=== PATIENT | female | born 1970 | race Caucasian/White ===

== ENCOUNTER 2022-07-02 02:28 | Emergency (ER) | payer MEDICAID, SELFPAY ==
[2022-07-02 02:37] VITALS: BP 119/68; PULSE 101; RESP 16; TEMP 36.6; O2SAT 99; BMI 23.5
[2022-07-02 02:42] VITALS: BP 110/67; PULSE 89; RESP 16; O2SAT 99
--- NOTE | 2022-07-02 02:47 | ED_ITS ---
HPI - General Adult General: Chief complaint: General Medical Stated complaint: Deydrated\Ear Pain\Cant's Sleep Time Seen by Provider: 07/02/22 02:34 Source: patient Mode of arrival: ambulatory Limitations: no limitations History of Present Illness: 51-year-old female who states that over the last few days she been having some congestion along with ear pain slight cough along with some dysuria states she also feels like she may be dehydrated she had no vomiting no diarrhea states she has felt anxious she states she just moved here from [place] and was unable to fill her Xanax she has been out of it a week. States she had difficulty sleeping. Associated symptoms: Deny chest pain, dyspnea, headache(s), nausea, rash or vomiting Review of Systems Const: Reports: body aches; Denies: fever(s), chills or change in appetite Eyes: Denies: eye discomfort ENMT: Reports: ear or mastoid pain; Denies: throat pain or dental pain Card: Denies: chest pain Resp: Denies: dyspnea GI: Denies: abdominal pain, nausea, vomiting or diarrhea : Reports: dysuria Musc: Denies: neck pain or back pain Skin/Breast: Denies: rash Neuro: Denies: headache(s) Psych: Reports: anxiety PFSH ED PFSH: Medical History (Updated 07/02/22 @ 03:33 by Michaela Posadas MD) Anxiety Social History (Updated 07/02/22 @ 02:49 by Michaela Posadas MD) Substance/Drug Use: unknown Physical Exam 2 Const: COMMON NORMALS: no acute distress, patient oriented x3 and healthy appearing HENMT: COMMON NORMALS: normocephalic, atraumatic and TM's normal bilaterally HEAD & SCALP: normocephalic and atraumatic TYMPANIC MEMBRANE: TM's normal bilaterally THROAT: posterior oropharynx normal Eye: COMMON NORMALS: conjunctivae normal CONJUNCTIVA: Yes conjunctivae normal Neck/C-Spine: COMMON NORMALS: full ROM and supple Chest: COMMONS NORMALS: normal inspection of the chest and normal palpation of entire chest wall Resp: COMMON NORMALS: normal respiratory effort, No retractions, No use of accessory muscles and clear to auscultation bilaterally AUSCULTATION: clear to auscultation bilaterally Cardio: COMMON NORMALS: regular rate, regular rhythm and No murmurs present (Cardio) RATE: regular rate RHYTHM: regular rhythm GI: COMMON NORMALS: Normal to inspection, nondistended, normoactive bowel sounds present, Soft to palpation, non-tender and no masses PALPATION: Yes Soft to palpation Extremity: COMMON NORMALS: normal to inspection and full ROM Neuro: COMMON NORMALS: patient oriented x3, moves all extremities and no focal motor deficits Psych: COMMON NORMALS: mental status grossly normal, Normal thought process present and cooperative THOUGHT PROCESS: Normal thought process present Skin: COMMON NORMALS: no rashes or lesions noted and no wounds GENERAL SKIN EXAM: no rashes or lesions noted Course Vital Signs: Vital signs: Vital Signs Temperature 97.8 F 07/02/22 02:37 Pulse Rate 96 07/02/22 03:39 Respiratory Rate 14 07/02/22 03:39 Blood Pressure 116/63 07/02/22 03:39 Pulse Oximetry 98 07/02/22 03:39 Oxygen Delivery Me thod Room Air 07/02/22 03:39 MDM - General Adult Medical Decision Making Patient presents here with cough congestion and some sinus pain possibly a sinusitis we will place her on a Z-Renato she is to continue take decongestants she does have some hyperglycemia here that is improved she is a diabetic no signs of UTI she is stable for discharge she is to follow-up with PCP and return if wo rsening. Medical Records I reviewed the patient's medical records. Lab Data I reviewed the patient's lab results. 07/02/22 02:47 07/02/22 02:47 Laboratory Results WBC 8.7 10^3/uL (4.0-10.0) 07/02/22 02:47 RBC 5.41 10^6/uL (4.1-5.3) H 07/02/22 02:47 Hgb 14.7 g/dL (11.5-15.3) 07/02/22 02:47 Hct 45.7 % (37.0-47.0) 07/02/22 02:47 MCV 84.5 fl (81-99) 07/02/22 02:47 MCH 27.2 pg (28.0-34.0) L 07/02/22 02:47 MCHC 32.2 g/dL (30.0-36.0) 07/02/22 02:47 RDW 15.9 % (12.1-15.1) H 07/02/22 02:47 Plt Count 213 10^3/cmm (130-400) 07/02/22 02:47 MPV 9.2 fL (7.4-10.4) 07/02/22 02:47 Neut % (Auto) 69.1 % 07/02/22 02:47 Lymph % (Auto) 19.7 % 07/02/22 02:47 [place] % (Auto) 9.6 % 07/02/22 02:47 Eos % (Auto) 0.3 % 07/02/22 02:47 Baso % (Auto) 0.8 % 07/02/22 02:47 Neut # (Auto) 5.98 10^3/uL (1.8-7.7) 07/02/22 02:47 Lymph # (Auto) 1.7 10^3/uL (0.8-4.8) 07/02/22 02:47 [place] # (Auto) 0.8 10^3/uL (0.2-0.9) 07/02/22 02:47 Eos # (Auto) 0.0 10^3/uL (0.0-0.8) 07/02/22 02:47 Baso # (Auto) 0.1 10^3/uL (0.0-0.1) 07/02/22 02:47 Nucleated RBC % (auto) 0 % 07/02/22 02:47 Nucleated RBCs # 0.0 /100WBC 07/02/22 02:47 Sodium 131 mmol/L (136-145) L 07/02/22 02:47 Potassium 4.3 mmol/L (3.5-5.1) 07/02/22 02:47 Chloride 89 mmol/L (98-107) L 07/02/22 02:47 Carbon Dioxide 26 mmol/L (22-29) 07/02/22 02:47 Anion Gap 20.3 (5-19) H 07/02/22 02:47 BUN 9 mg/dL (6-20) 07/02/22 02:47 Creatinine 0.6 mg/dL (0.5-0.9) 07/02/22 02:47 GFR Calculation 105.8 mL/min (90-130) 07/02/22 02:47 Glucose 420 mg/dL (65-115) H 07/02/22 02:47 POC Glucose 363 mg/dL (70-110) H 07/02/22 03:35 Calculated Osmolality 289 mOsm/kg (285-295) 07/02/22 02:47 Calcium 9.8 mg/dL (8.5-10.5) 07/02/22 02:47 Total Bilirubin 1.2 mg/dL (0.15-1.2) 07/02/22 02:47 AST 119 U/L (0-32) H 07/02/22 02:47 ALT 56 U/L (0-33) H 07/02/22 02:47 Alkaline Phosphatase 137 U/L (35-105) H 07/02/22 02:47 Total Protein 8.2 g/dL (6.6-8.7) 07/02/22 02:47 Albumin 4.6 g/dL (3.5-5.2) 07/02/22 02:47 Globulin 3.6 g/dL (1.3-4.6) 07/02/22 02:47 Urine Color Yellow (Yellow) 07/02/22 02:47 Urine Appearance Clear (CLEAR) 07/02/22 02:47 Urine pH 6 (5-7) 07/02/22 02:47 Ur Specific [place] 1.010 (1.005-1.030) 07/02/22 02:47 Urine Protein Neg (Negative) 07/02/22 02:47 Urine Glucose (UA) 4+ (Normal) H 07/02/22 02:47 Urine Ketones 1+ (Negative) H 07/02/22 02:47 Urine Blood Neg (Negative) 07/02/22 02:47 Urine Nitrate Negative (Negative) 07/02/22 02:47 Urine Bilirubin Neg (Negative) 07/02/22 02:47 Urine Urobilinogen 1 mg/dL (Negative) H 07/02/22 02:47 Ur Leukocyte Esterase Negative (Negative) 07/02/22 02:47 SARS-CoV-2 Ag (Rapid) negative (Negative) 07/02/22 03:00 Imaging Data CXR: I personally reviewed and interpreted this imaging study as follows: My impression: no acute abnormality Discharge Plan Discharge Patient Disposition: Home Clinical Impression: Hyperglycemia, Anxiety, Upper respiratory infection Prescriptions: New Zithromax Z-Renato 250 mg tablet See Rx Instructions .ROUTE .COMPLEX Qty: 6 0RF Rx Instructions: take 500 mg today (day 1), then 250 mg for 4 days (days 2-5) Discharge Orders: Discharge ED (Routine); Ordered 07/02/22 Ordered By: Michaela Posadas Discharge Diet: Advance as tolerated Discharge Activity: Resume usual activity Patient Instructions: Upper Respiratory Infection (ED), Diabetic Hyperglycemia (ED) Coding Level of Care Code ED Electronic Scale Tester for Adelaide Salgado
[2022-07-02] MEDS: sodium chloride 0.9% 1,000 ML 999 ML IV (02:52)
[2022-07-02] MEDS: ALPRAZolam 0.5 mg Tablet 2 MG PO (02:53)
[2022-07-02 02:54] LABS: Basophils # 0.1 10^3/uL (0.0-0.1); Basophils % 0.8 %; Eosinophils % 0.3 %; Hematocrit 45.7 % (37.0-47.0); Hemoglobin 14.7 g/dL (11.5-15.3); Lymphocytes # 1.7 10^3/uL (0.8-4.8); Lymphocytes % 19.7 %; Mean Corpuscular HGB Conc 32.2 g/dL (30.0-36.0); Mean Corpuscular Hemoglobin 27.2 pg (28.0-34.0); Mean Corpuscular Volume 84.5 fl (81-99); Mean Platelet Volume 9.2 fL (7.4-10.4); Monocytes # 0.8 10^3/uL (0.2-0.9); Monocytes % 9.6 %; Neutrophils # 5.98 10^3/uL (1.8-7.7); Neutrophils % 69.1 %; Nucleated Red Blood Cells % 0 %; Platelet Count 213 10^3/cmm (130-400); Red Blood Count 5.41 10^6/uL (4.1-5.3); Red Cell Distribution Width 15.9 % (12.1-15.1); White Blood Count 8.7 10^3/uL (4.0-10.0)
[2022-07-02 03:04] LABS: Glucose Point of Care 360 mg/dL (70-110)
[2022-07-02 03:05] LABS: Add Urine Microscopic? NO; Charge for UA Resulting for Rev
[2022-07-02 03:09] LABS: Bilirubin Urine Neg (Negative); Blood Urine Neg (Negative); Glucose Urine UA 4+ (Normal); Ketones Urine 1+ (Negative); Leukocyte Esterase Urine Negative (Negative); Nitrate Urine Negative (Negative); Protein Urine Neg (Negative); Urine Appearance Clear (CLEAR); Urine Color Yellow (Yellow); Urobilinogen Urine 1 mg/dL (Negative); pH Urine 6 (5-7)
[2022-07-02 03:13] LABS: Alanine Aminotransferase 56 U/L (0-33); Albumin Level 4.6 g/dL (3.5-5.2); Alkaline Phosphatase 137 U/L (35-105); Anion Gap 20.3 (5-19); Aspartate Amino Transferase 119 U/L (0-32); Blood Urea Nitrogen 9 mg/dL (6-20); Calcium 9.8 mg/dL (8.5-10.5); Carbon Dioxide 26 mmol/L (22-29); Chloride 89 mmol/L (98-107); Globulin 3.6 g/dL (1.3-4.6); Glomerular Filtration Rate 105.8 mL/min (90-130); Glucose 420 mg/dL (65-115); Osmolality Calculated 289 mOsm/kg (285-295); Potassium 4.3 mmol/L (3.5-5.1); Sodium 131 mmol/L (136-145); Total Bilirubin 1.2 mg/dL (0.15-1.2); Total Protein 8.2 g/dL (6.6-8.7)
[2022-07-02] MEDS: insulin regular-human 100 units/1 mL 5 UNIT IVP (03:18)
[2022-07-02 03:22] LABS: SARS Covid-2 Antigen negative (Negative)
[2022-07-02 03:39] VITALS: BP 116/63; PULSE 96; RESP 14; O2SAT 98
[2022-07-02 03:39] LABS: Glucose Point of Care 363 mg/dL (70-110)
[2022-07-02] MEDS: azithromycin 250 mg Tablet 500 MG PO (03:49)
[2022-07-02 03:53] VITALS: BP 110/56; PULSE 93; RESP 14; O2SAT 97
--- NOTE | 2022-07-10 07:44 | DCPLANNER ---
TCM called patient due to no primary care physician - no answer at this time.
== END 2022-07-02 03:55 | disposition home or self-care (01) ==
PROVIDERS: Emergency Provider Emergency Medicine
DX: J06.9 Acute upper respiratory infection, unspecified (principal); F41.9 Anxiety disorder, unspecified; R73.9 Hyperglycemia, unspecified; Z20.822 Contact with and (suspected) exposure to COVID-19
CPT/HCPCS: 36416; 80053; 81003; 82962; 85025; 87426; 96361; 96374; 99284; J1815; J7030; Q0144

== ENCOUNTER 2022-08-03 09:06 | Emergency (ER) | payer MEDICAID, SELFPAY ==
[2022-08-03] VITALS (8 sets, daily range): BP systolic 116–167; BP diastolic 65–108; PULSE 82–113; RESP 16–18; TEMP 36.6; O2SAT 96–98
--- NOTE | 2022-08-03 11:12 | US_ITS ---
WS: [id number] RIGHT UPPER QUADRANT ULTRASOUND HISTORY: RUQ abdominal pain, n/v COMPARISON: None available. Liver: 20.1 cm in length. Moderate hepatomegaly and hepatic steatosis. No mass or bile duct dilatatio n. Portal Vein: Normal hepatopetal flow with monophasic waveform. Gallbladder: Normally distended gallbladder with no stones or wall thickening. CBD: 0.2 cm Pancreas: Normal size and echogenicity. Right kidney: 13.0 cm in length. Normal size and echogenicity. No hydronephrosis or mass. Aorta and IVC: Limited. No ascites. US/US gall bladder [id number] IMPRESSION: 1. Normal gallbladder. No cholelithiasis identified. 2. Moderate hepatomegaly and hepatic steatosis.
--- NOTE | 2022-08-03 11:15 | W.ED.GENADLT ---
Documented by User: LIZ Tavera 08/03/22 16:56 HPI - General Adult General: Chief complaint: General Medical Stated complaint: high blood sugar Time Seen by Provider: 08/03/22 10:59 History of Present Illness: Patient is a 51-year-old female who comes to the ED with elevated blood sugars, nausea/vomiting and abdominal pain. Patient says her symptoms started approximately a week ago. She states that she just moved down to this area about 2 months ago and does not have a primary care physician. Past surgical history of gastric sleeve and appendectomy. She has type 2 diabetes, depression and anxiety and has not been on any of her meds for approximately a month. Patient states she was on metformin and glipizide. Denies any SI. Approximately a week ago she started having abdominal pain in the right upper quadrant of the abdomen. She rates her pain currently a 7 out of 10. She says pain worsens whenever she tries to eat anything. She endorses having nausea and vomiting all throughout the past week as well and states that she took her blood sugar today and it was 545. Denies any fevers but endorses chills and increased urine frequency. She has to urinate every 2 hours and has had trouble sleeping because she is consciously getting up to go to the bathroom. Associated symptoms: Reports nausea and vomiting; Deny chest pain, dyspnea, headache(s), rash or palpitations Review of Systems Const: Denies: fever(s), chills or fatigue Eyes: Denies: change in vision or eye discomfort ENMT: Denies: throat pain, odynophagia, nasal discharge or nasal congestion Card: Denies: chest pain, palpitations, edema, swelling of feet/ankles, dyspnea on exertion or orthopnea Resp: Denies: dyspnea, productive cough or non-productive cough GI: Reports: abdominal pain, nausea and vomiting; Denies: diarrhea, constipation or hematochezia : Denies: flank pain, dysuria or hematuria Musc: Denies: neck pain, back pain or extremity swelling Skin/Breast: Denies: rash or new lesions Neuro: Denies: headache(s), numbness in extremities or weakness in extremities Endo: Reports: polyuria [facility] PFSH: Medical History (Updated 08/03/22 @ 16:28 by ILZ Tavera) Anxiety Depression Diabetes type 2, uncontrolled Surgical History (Updated 08/03/22 @ 11:24 by LIZ Tavera) H/O gastric sleeve History of appendectomy Social History (Updated 07/02/22 @ 02:49 by Michaela Posadas MD) Substance/Drug Use: unknown Physical Exam Const: COMMON NORMALS: patient oriented x3 and alert GENERAL APPEARANCE: cooperative HENMT: COMMON NORMALS: normocephalic HEAD & SCALP: normocephalic MOUTH: Normal oral and palatal mucosa present THROAT: posterior oropharynx normal and uvula midline Neck/C-Spine: COMMON NORMALS: supple GENERAL: Yes normal visual inspection Resp: COMMON NORMALS: normal respiratory effort, No retractions, No use of accessory muscles and clear to auscultation bilaterally AUSCULTATION: clear to auscultation bilaterally Cardio: COMMON NORMALS: regular rate, regular rhythm, S1 normal heart sound present, S2 normal heart sound present, No gallops present (Cardio), No clicks present (Cardio), No murmurs present (Cardio) and Peripheral pulses 2+ throughout RATE: regular rate RHYTHM: regular rhythm HEART SOUNDS: S1 normal heart sound present and S2 normal heart sound present PERIPHERAL PULSES: Peripheral pulses 2+ throughout GI: COMMON NORMALS: Normal to inspection, nondistended, normoactive bowel sounds present, Soft to palpation and no masses PALPATION: Yes Soft to palpation and Yes Tenderness to palpation present (GI) Details: RUQ : COMMON NORMALS: Yes no CVA tenderness BLADDER/KIDNEY EXAM: Yes no CVA tenderness Back/Pelvis: COMMON NORMALS: no CVA tenderness Extremity: COMMON NORMALS: normal to inspection Neuro: COMMON NORMALS: patient oriented x3 SENSORIUM/ORIENTATION: Yes alert GAIT: Yes Normal gait present Skin: GENERAL SKIN EXAM: dry skin Course Vital Signs: Vital signs: Vital Signs Temperature 97.9 F 08/03/22 09:35 Pulse Rate 106 H 08/03/22 16:46 Respiratory Rate 16 08/03/22 16:46 Blood Pressure 116/65 08/03/22 16:46 Pulse Oximetry 96 08/03/22 16:46 Oxygen Delivery Me thod Room Air 08/03/22 09:35 [facility] - General Adult Medical Decision Making Patient is a 51-year-old female who comes to the ED with elevated blood sugars, nausea/vomiting and abdominal pain. Patient says her symptoms started approximately a week ago. She states that she just moved down to this area about 2 months ago and does not have a primary care physician. Past surgical history of gastric sleeve and appendectomy. She has type 2 diabetes, depression and anxiety and has not been on any of her meds for approximately a month. Patient states she was on metformin and glipizide. Denies any SI. Approximately a week ago she started having abdominal pain in the right upper quadrant of the abdomen. She rates her pain currently a 7 out of 10. She says pain worsens whenever she tries to eat anything. She endorses having nausea and vomiting all throughout the past week as well and states that she took her blood sugar today and it was 545. Denies any fevers but endorses chills and increased urine frequency. She has to urinate every 2 hours and has had trouble sleeping because she is consciously getting up to go to the bathroom. Vitals are stable. Patient has right upper quadrant abdominal tenderness but rest of exam is benign. She appears nontoxic in no acute distress. Patient has a blood glucose of 374, AST 384 and ALT 218. T. bili is normal at 0.6. the rest of her CBC and CMP are unremarkable. Lipase 409. UA shows yeast infection. Ultrasound gallbladder showed no acute findings but noted some moderate hepatomegaly. CT of abdomen pelvis showed no findings of acute pancreatitis and no other acute findings noted. Hepatitis panel was all nonreactive. Patient was given 2 L of IV fluids, insulin, anxiety meds, nausea and pain meds here in the ED. her symptoms were improved and she was able to tolerate p.o. fluids here in the ED. I discussed patient case with Dr. Beach and he agreed patient is stable for discharge home and he recommended putting an order with case management for patient to have referral to general surgery. I placed an order with case management for patient be referred to a PCP locally and to general surgery for follow-up on biliary colic. Patient was diagnosed with biliary colic, hyper glycemia due to type 2 diabetes, yeast infection and anxiety. She was sent home with a prescription for a pain med, nausea med, fluconazole and Vistaril. Strict return to ED precautions given. Patient understood and agreed with plan. Lab Data I reviewed the patient's lab results. 08/03/22 11:25 08/03/22 11:25 Radiology Impressions Gallbladder Ultrasound 06/12/23 11:12 IMPRESSION: 1. Normal gallbladder. No cholelithiasis identified. 2. Moderate hepatomegaly and hepatic steatosis. Abdomen/Pelvis CT 08/03/22 12:18 IMPRESSION: 1. Moderate hepatomegaly and hepatic steatosis. 2. No bile duct dilatation. 3. No CT evidence for acute pancreatitis. 4. Mildly hydropic gallbladder with no adjacent inflammation. 5. Prior gastric sleeve and appendectomy. 6. No free air or free fluid. Laboratory Results WBC 6.6 10^3/uL (4.0-10.0) 08/03/22 11:25 RBC 5.23 10^6/uL (4.1-5.3) 08/03/22 11:25 Hgb 15.1 g/dL (11.5-15.3) 08/03/22 11:25 Hct 47.0 % (37.0-47.0) 08/03/22 11:25 MCV 89.9 fl (81-99) 08/03/22 11:25 MCH 28.9 pg (28.0-34.0) 08/03/22 11:25 MCHC 32.1 g/dL (30.0-36.0) 08/03/22 11:25 RDW 15.9 % (12.1-15.1) H 08/03/22 11:25 Plt Count 202 10^3/cmm (130-400) 08/03/22 11:25 MPV 9.5 fL (7.4-10.4) 08/03/22 11:25 Neut % (Auto) 65.4 % 08/03/22 11:25 Lymph % (Auto) 20.3 % 08/03/22 11:25 [place] % (Auto) 12.0 % 08/03/22 11:25 Eos % (Auto) 0.3 % 08/03/22 11:25 Baso % (Auto) 1.4 % 08/03/22 11:25 Neut # (Auto) 4.33 10^3/uL (1.8-7.7) 08/03/22 11:25 Lymph # (Auto) 1.3 10^3/uL (0.8-4.8) 08/03/22 11:25 [place] # (Auto) 0.8 10^3/uL (0.2-0.9) 08/03/22 11:25 Eos # (Auto) 0.0 10^3/uL (0.0-0.8) 08/03/22 11:25 Baso # (Auto) 0.1 10^3/uL (0.0-0.1) 08/03/22 11:25 Nucleated RBC % (auto) 0 % 08/03/22 11:25 Nucleated RBCs # 0.0 /100WBC 08/03/22 11:25 Sodium 133 mmol/L (136-145) L 08/03/22 11:25 Potassium 4.5 mmol/L (3.5-5.1) 08/03/22 11:25 Chloride 86 mmol/L (98-107) L 08/03/22 11:25 Carbon Dioxide 25 mmol/L (22-29) 08/03/22 11:25 Anion Gap 26.5 (5-19) H 08/03/22 11:25 BUN 9 mg/dL (6-20) 08/03/22 11:25 Creatinine 0.5 mg/dL (0.5-0.9) 08/03/22 11:25 GFR Calculation 130.6 mL/min (90-130) H 08/03/22 11:25 Glucose 374 mg/dL (65-115) H 08/03/22 11:25 Calculated Osmolality 290 mOsm/kg (285-295) 08/03/22 11:25 Calcium 10.3 mg/dL (8.5-10.5) 08/03/22 11:25 Total Bilirubin 0.6 mg/dL (0.15-1.2) 08/03/22 11:25 AST 384 U/L (0-32) H 08/03/22 11:25 ALT 218 U/L (0-33) H 08/03/22 11:25 Alkaline Phosphatase 200 U/L (35-105) H 08/03/22 11:25 Total Protein 8.3 g/dL (6.6-8.7) 08/03/22 11:25 Albumin 4.3 g/dL (3.5-5.2) 08/03/22 11:25 Globulin 4.0 g/dL (1.3-4.6) 08/03/22 11:25 Lipase 409 U/L (13-60) H 08/03/22 11:25 Urine Color Yellow (Yellow) 08/03/22 11:25 Urine Appearance Clear (CLEAR) 08/03/22 11:25 Urine pH 5 (5-7) 08/03/22 11:25 Ur Specific [place] 1.010 (1.005-1.030) 08/03/22 11:25 Urine Protein Neg (Negative) 08/03/22 11:25 Urine Glucose (UA) 4+ (Normal) H 08/03/22 11:25 Urine Ketones 2+ (Negative) H 08/03/22 11:25 Urine Blood Neg (Negative) 08/03/22 11:25 Urine Nitrate Negative (Negative) 08/03/22 11:25 Urine Bilirubin Neg (Negative) 08/03/22 11:25 Urine Urobilinogen Norm mg/dL (Negative) 08/03/22 11:25 Ur Leukocyte Esterase Trace (Negative) H 08/03/22 11:25 Urine RBC 0-4 /hpf (0-2) H 08/03/22 11:25 Urine WBC 40-55 /hpf (0-5) H 08/03/22 11:25 Ur Squamous Epith Cells 0-4 /hpf (0-5) H 08/03/22 11:25 Amorphous Sediment Not Reportable 08/03/22 11:25 Urine Bacteria Trace /hpf (NONE) 08/03/22 11:25 Urine Yeast 1+ /hpf H 08/03/22 11:25 Serum Ketones Negative (Negative) 08/03/22 11:25 Hepatitis A IgM Ab Non-reactive (Nonreactive) 08/03/22 11:25 Hep Bs Antigen Non-reactive (Nonreactive) 08/03/22 11:25 Hep Bs Antibody 6.7 (11.5-1000) L 08/03/22 11:25 Hep B Core Total Ab Non-reactive (Nonreactive) 08/03/22 11:25 Hepatitis C Antibody Non-reactive (Nonreactive) 08/03/22 11:25 Discharge Plan Discharge Patient Disposition: Home Clinical Impression: Biliary colic, Yeast infection, Anxiety Hyperglycemia due to type 2 diabetes mellitus Qualifiers: Diabetes mellitus technician terminal and repeater insulin use: without retirement use Qualified Code(s): E11.65 - Type 2 diabetes mellitus with hyperglycemia Condition: Stable Prescriptions: New glipizide 10 mg tablet 10 mg PO BID Qty: 60 0RF metformin 1,000 mg tablet 1,000 mg PO BID Qty: 60 0RF fluconazole 150 mg tablet 150 mg PO Q3D Qty: 2 0RF Rx Instructions: may repeat second dose 72 hrs after first dose if symptoms persist ondansetron 4 mg tablet,disintegrating 4 mg PO Q8H PRN (Reason: nausea and vomiting) Qty: 30 0RF Vistaril 50 mg capsule 50 mg PO Q8H PRN (Reason: Acute anxiety) Qty: 30 0RF Discharge Orders: Discharge ED (Routine); Ordered 08/03/22 Ordered By: Dillon Pereira Discharge Diet: Advance as tolerated and Clear Liquid Discharge Activity: Increase activity as tolerated Patient Instructions: Biliary Colic (ED), Yeast Infection (ED), Abdominal Pain (ED), Opioid Safety Activity Restrictions/Additional Instructions: Follow-up with medical provider as directed. Case management regarding in the next several days to set up an appointment with a primary care physician for follow-up and also with general surgery for follow-up on right upper quadrant abdominal pain. Clear liquid diet for the next 48 hours and slowly advance diet as tolerated. Take medications as prescribed. Return to the ER or your medical provider if condition worsens. Please read and understand discharge instructions. Thank you for choosing [facility] for your healthcare needs today. Please realize this is an emergency room and that we are providing you with a medical screening exam and this may not be complete and all inclusive of all the testing and or work up that you may need to determine your ailment or severity of your illness. It is very important that you follow up as instructed or that you return to the Emergency Department should you have concerns or if your condition changes or worsens in any way. Coding Level of Care Code ED Optical Fabricator for Chg Fwd Documented by User: Chapo Beach DO 08/03/22 16:58 HPI - General Adult General: Chief complaint: General Medical Stated complaint: high blood sugar Time Seen by Provider: 08/03/22 10:59 PFS ED PFS: Medical History (Updated 08/03/22 @ 16:28 by LIZ Tavera) Anxiety Depression Diabetes type 2, uncontrolled Surgical History (Updated 08/03/22 @ 11:24 by LIZ Tavera) H/O gastric sleeve History of appendectomy Social History (Updated 07/02/22 @ 02:49 by Michaela Posadas MD) Substance/Drug Use: unknown Course Vital Signs: Vital signs: Vital Signs Temperature 97.9 F 08/03/22 09:35 Pulse Rate 106 H 08/03/22 16:46 Respiratory Rate 16 08/03/22 16:46 Blood Pressure 116/65 08/03/22 16:46 Pulse Oximetry 96 08/03/22 16:46 Oxygen Delivery Me thod Room Air 08/03/22 09:35 MDM - General Adult Medical Decision Making Patient is a 51-year-old female who comes to the ED with elevated blood sugars, nausea/vomiting and abdominal pain. Patient says her symptoms started approximately a week ago. She states that she just moved down to this area about 2 months ago and does not have a primary care physician. Past surgical history of gastric sleeve and appendectomy. She has type 2 diabetes, depression and anxiety and has not been on any of her meds for approximately a month. Patient states she was on metformin and glipizide. Denies any SI. Approximately a week ago she started having abdominal pain in the right upper quadrant of the abdomen. She rates her pain currently a 7 out of 10. She says pain worsens whenever she tries to eat anything. She endorses having nausea and vomiting all throughout the past week as well and states that she took her blood sugar today and it was 545. Denies any fevers but endorses chills and increased urine frequency. She has to urinate every 2 hours and has had trouble sleeping because she is consciously getting up to go to the bathroom. Vitals are stable. Patient has right upper quadrant abdominal tenderness but rest of exam is benign. She appears nontoxic in no acute distress. Patient has a blood glucose of 374, AST 384 and ALT 218. T. bili is normal at 0.6. the rest of her CBC and CMP are unremarkable. Lipase 409. UA shows yeast infection. Ultrasound gallbladder showed no acute findings but noted some moderate hepatomegaly. CT of abdomen pelvis showed no findings of acute pancreatitis and no other acute findings noted. Hepatitis panel was all nonreactive. Patient was given 2 L of IV fluids, insulin, anxiety meds, nausea and pain meds here in the ED. her symptoms were improved and she was able to tolerate p.o. fluids here in the ED. I discussed patient case with Dr. Beach and he agreed patient is stable for discharge home and he recommended putting an order with case management for patient to have referral to general surgery. I placed an order with case management for patient be referred to a PCP locally and to general surgery for follow-up on biliary colic. Patient was diagnosed with biliary colic, hyper glycemia due to type 2 diabetes, yeast infection and anxiety. She was sent home with a prescription for a pain med, nausea med, fluconazole and Vistaril. Strict return to ED precautions given. Patient understood and agreed with plan. Chart reviewed and patient discussed with midlevel. Agree with assessment and plan. Lab Data 08/03/22 11:25 08/03/22 11:25 Radiology Impressions Gallbladder Ultrasound 08/03/22 11:12 IMPRESSION: 1. Normal gallbladder. No cholelithiasis identified. 2. Moderate hepatomegaly and hepatic steatosis. Abdomen/Pelvis CT 08/03/22 12:18 IMPRESSION: 1. Moderate hepatomegaly and hepatic steatosis. 2. No bile duct dilatation. 3. No CT evidence for acute pancreatitis. 4. Mildly hydropic gallbladder with no adjacent inflammation. 5. Prior gastric sleeve and appendectomy. 6. No free air or free fluid. Laboratory Results WBC 6.6 10^3/uL (4.0-10.0) 08/03/22 11:25 RBC 5.23 10^6/uL (4.1-5.3) 08/03/22 11:25 Hgb 15.1 g/dL (11.5-15.3) 08/03/22 11:25 Hct 47.0 % (37.0-47.0) 08/03/22 11:25 MCV 89.9 fl (81-99) 08/03/22 11:25 MCH 28.9 pg (28.0-34.0) 08/03/22 11:25 MCHC 32.1 g/dL (30.0-36.0) 08/03/22 11:25 RDW 15.9 % (12.1-15.1) H 08/03/22 11:25 Plt Count 202 10^3/cmm (130-400) 08/03/22 11:25 MPV 9.5 fL (7.4-10.4) 08/03/22 11:25 Neut % (Auto) 65.4 % 08/03/22 11:25 Lymph % (Auto) 20.3 % 08/03/22 11:25 [place] % (Auto) 12.0 % 08/03/22 11:25 Eos % (Auto) 0.3 % 08/03/22 11:25 Baso % (Auto) 1.4 % 08/03/22 11:25 Neut # (Auto) 4.33 10^3/uL (1.8-7.7) 08/03/22 11:25 Lymph # (Auto) 1.3 10^3/uL (0.8-4.8) 08/03/22 11:25 [place] # (Auto) 0.8 10^3/uL (0.2-0.9) 08/03/22 11:25 Eos # (Auto) 0.0 10^3/uL (0.0-0.8) 08/03/22 11:25 Baso # (Auto) 0.1 10^3/uL (0.0-0.1) 08/03/22 11:25 Nucleated RBC % (auto) 0 % 08/03/22 11:25 Nucleated RBCs # 0.0 /100WBC 08/03/22 11:25 Sodium 133 mmol/L (136-145) L 08/03/22 11:25 Potassium 4.5 mmol/L (3.5-5.1) 08/03/22 11:25 Chloride 86 mmol/L (98-107) L 08/03/22 11:25 Carbon Dioxide 25 mmol/L (22-29) 08/03/22 11:25 Anion Gap 26.5 (5-19) H 08/03/22 11:25 BUN 9 mg/dL (6-20) 08/03/22 11:25 Creatinine 0.5 mg/dL (0.5-0.9) 08/03/22 11:25 GFR Calculation 130.6 mL/min (90-130) H 08/03/22 11:25 Glucose 374 mg/dL (65-115) H 08/03/22 11:25 Calculated Osmolality 290 mOsm/kg (285-295) 08/03/22 11:25 Calcium 10.3 mg/dL (8.5-10.5) 08/03/22 11:25 Total Bilirubin 0.6 mg/dL (0.15-1.2) 08/03/22 11:25 AST 384 U/L (0-32) H 08/03/22 11:25 ALT 218 U/L (0-33) H 08/03/22 11:25 Alkaline Phosphatase 200 U/L (35-105) H 08/03/22 11:25 Total Protein 8.3 g/dL (6.6-8.7) 08/03/22 11:25 Albumin 4.3 g/dL (3.5-5.2) 08/03/22 11:25 Globulin 4.0 g/dL (1.3-4.6) 08/03/22 11:25 Lipase 409 U/L (13-60) H 08/03/22 11:25 Urine Color Yellow (Yellow) 08/03/22 11:25 Urine Appearance Clear (CLEAR) 08/03/22 11:25 Urine pH 5 (5-7) 08/03/22 11:25 Ur Specific [place] 1.010 (1.005-1.030) 08/03/22 11:25 Urine Protein Neg (Negative) 08/03/22 11:25 Urine Glucose (UA) 4+ (Normal) H 08/03/22 11:25 Urine Ketones 2+ (Negative) H 08/03/22 11:25 Urine Blood Neg (Negative) 08/03/22 11:25 Urine Nitrate Negative (Negative) 08/03/22 11:25 Urine Bilirubin Neg (Negative) 08/03/22 11:25 Urine Urobilinogen Norm mg/dL (Negative) 08/03/22 11:25 Ur Leukocyte Esterase Trace (Negative) H 08/03/22 11:25 Urine RBC 0-4 /hpf (0-2) H 08/03/22 11:25 Urine WBC 40-55 /hpf (0-5) H 08/03/22 11:25 Ur Squamous Epith Cells 0-4 /hpf (0-5) H 08/03/22 11:25 Amorphous Sediment Not Reportable 08/03/22 11:25 Urine Bacteria Trace /hpf (NONE) 08/03/22 11:25 Urine Yeast 1+ /hpf H 08/03/22 11:25 Serum Ketones Negative (Negative) 08/03/22 11:25 Hepatitis A IgM Ab Non-reactive (Nonreactive) 08/03/22 11:25 Hep Bs Antigen Non-reactive (Nonreactive) 08/03/22 11:25 Hep Bs Antibody 6.7 (11.5-1000) L 08/03/22 11:25 Hep B Core Total Ab Non-reactive (Nonreactive) 08/03/22 11:25 Hepatitis C Antibody Non-reactive (Nonreactive) 08/03/22 11:25 Discharge Plan Discharge Patient Disposition: Home Clinical Impression: Biliary colic, Yeast infection, Anxiety Hyperglycemia due to type 2 diabetes mellitus Qualifiers: Diabetes mellitus retirement insulin use: without technician terminal and repeater use Qualified Code(s): E11.65 - Type 2 diabetes mellitus with hyperglycemia Condition: Stable Prescriptions: New glipizide 10 mg tablet 10 mg PO BID Qty: 60 0RF metformin 1,000 mg tablet 1,000 mg PO BID Qty: 60 0RF fluconazole 150 mg tablet 150 mg PO Q3D Qty: 2 0RF Rx Instructions: may repeat second dose 72 hrs after first dose if symptoms persist ondansetron 4 mg tablet,disintegrating 4 mg PO Q8H PRN (Reason: nausea and vomiting) Qty: 30 0RF Vistaril 50 mg capsule 50 mg PO Q8H PRN (Reason: Acute anxiety) Qty: 30 0RF Discharge Orders: Discharge ED (Routine); Ordered 08/03/22 Ordered By: Dillon Pereira Discharge Diet: Advance as tolerated and Clear Liquid Discharge Activity: Increase activity as tolerated Patient Instructions: Biliary Colic (ED), Yeast Infection (ED), Abdominal Pain (ED), Opioid Safety Activity Restrictions/Additional Instructions: Follow-up with medical provider as directed. Case management regarding in the next several days to set up an appointment with a primary care physician for follow-up and also with general surgery for follow-up on right upper quadrant abdominal pain. Clear liquid diet for the next 48 hours and slowly advance diet as tolerated. Take medications as prescribed. Return to the ER or your medical provider if condition worsens. Please read and understand discharge instructions. Thank you for choosing [facility] for your healthcare needs today. Please realize this is an emergency room and that we are providing you with a medical screening exam and this may not be complete and all inclusive of all the testing and or work up that you may need to determine your ailment or severity of your illness. It is very important that you follow up as instructed or that you return to the Emergency Department should you have concerns or if your condition changes or worsens in any way. Coding Level of Care Code ED Optical Fabricator for Adelaide Salgado
[2022-08-03] MEDS: ondansetron 2 mg/ML SDV 2 mL 4 MG IVP (11:36)
[2022-08-03] MEDS: morphine 4 mg/mL SDV 1 mL IVP ×2 (11:36→14:55)
[2022-08-03] MEDS: LORazepam 2 mg/mL INJ 1 mL 0.5 MG IVP (11:38)
[2022-08-03 11:39] LABS: Basophils # 0.1 10^3/uL (0.0-0.1); Basophils % 1.4 %; Eosinophils % 0.3 %; Hemoglobin 15.1 g/dL (11.5-15.3); Lymphocytes # 1.3 10^3/uL (0.8-4.8); Lymphocytes % 20.3 %; Mean Corpuscular HGB Conc 32.1 g/dL (30.0-36.0); Mean Corpuscular Hemoglobin 28.9 pg (28.0-34.0); Mean Corpuscular Volume 89.9 fl (81-99); Mean Platelet Volume 9.5 fL (7.4-10.4); Monocytes # 0.8 10^3/uL (0.2-0.9); Neutrophils # 4.33 10^3/uL (1.8-7.7); Neutrophils % 65.4 %; Nucleated Red Blood Cells % 0 %; Platelet Count 202 10^3/cmm (130-400); Red Blood Count 5.23 10^6/uL (4.1-5.3); Red Cell Distribution Width 15.9 % (12.1-15.1); White Blood Count 6.6 10^3/uL (4.0-10.0)
[2022-08-03] MEDS: sodium chloride 0.9% 1,000 ML 999 ML IV ×2 (11:39→13:10)
[2022-08-03 11:50] LABS: Ketone (Acetest) Serum Negative (Negative)
[2022-08-03 11:56] LABS: Add Urine Culture? Yes; Add Urine Microscopic? YES; Bacteria Urine TRACE /hpf; Bilirubin Urine Neg (Negative); Blood Urine Neg (Negative); Glucose Urine UA 4+ (Normal); Ketones Urine 2+ (Negative); Leukocyte Esterase Urine Trace (Negative); Nitrate Urine Negative (Negative); Protein Urine Neg (Negative); RBC Urine 0-4 /hpf (0-2); Squamous Epithelial Cell Urine 0-4 /hpf (0-5); Urine Appearance Clear (CLEAR); Urine Color Yellow (Yellow); Urobilinogen Urine Norm (Negative); WBC Urine 40-55 /hpf (0-5); pH Urine 5 (5-7)
[2022-08-03 11:57] LABS: Alanine Aminotransferase 218 U/L (0-33); Albumin Level 4.3 g/dL (3.5-5.2); Alkaline Phosphatase 200 U/L (35-105); Anion Gap 26.5 (5-19); Aspartate Amino Transferase 384 U/L (0-32); Blood Urea Nitrogen 9 mg/dL (6-20); Calcium 10.3 mg/dL (8.5-10.5); Carbon Dioxide 25 mmol/L (22-29); Chloride 86 mmol/L (98-107); Glomerular Filtration Rate 130.6 mL/min (90-130); Glucose 374 mg/dL (65-115); Osmolality Calculated 290 mOsm/kg (285-295); Potassium 4.5 mmol/L (3.5-5.1); Sodium 133 mmol/L (136-145); Total Bilirubin 0.6 mg/dL (0.15-1.2); Total Protein 8.3 g/dL (6.6-8.7)
[2022-08-03 12:16] LABS: Lipase 409 U/L (13-60)
--- NOTE | 2022-08-03 12:18 | CT_ITS ---
WS: [id number] CT ABDOMEN AND PELVIS WITH CONTRAST HISTORY: abdominal pain, n/v, lipase 409 TECHNIQUE: Imaging performed of the abdomen and pelvis with IV contrast. Single phase imaging of the abdomen. Coronal and sagittal reformats are submitted. All CT scans at [facility] use at [address] one of these dose optimization techniques: automated exposure control; mA and/or kV adjustment per patient size (includes targeted exams where dose is matched to clinical indication); or iterative re construction. IV CONTRAST: Omnipaque 350; 100 mL IV. Oral contrast: No DLP: 624.08 mGy.cm COMPARISON: No similar studies. Gallbladder ultrasound 08/03/2022. Lower thorax: Lung bases are clear. Heart is normal size. Small hiatal hernia. Liver/biliary system: Marked decreased attenuation throughout an enlarged liver. No mass identified. No bile duct dilatation. Gallbladder: Mildly hydropic gallbladder. No adjacent pericholecystic fluid. No adjacent inflammation . Gallbladder wall is mildly enhancing. No bile duct dilatation. Pancreas: Normal size pancreas and pancreatic duct. No adjacent inflammation. Spleen: Normal size spleen. No mass or infarct. Adrenal glands: Normal. Right kidney: Normal size kidney. 8mm cortical cysts. No solid mass or obstruction. Left kidney: Normal. Aorta: Normal. Lymphadenopathy: None. Free fluid: None. GI tract: Prior gastric sleeve. No small bowel obstruction. Prior appendectomy. No mucosal thickening or colitis. There are a few scattered diverticula. No evidence for acute diverticulitis. Abdominal wall: Unremarkable abdominal wall. No hernia. Pelvis: No free fluid. Urinary bladder is well distended. IUD noted in the central endometrium. Bones: Unremarkable. CT/CT abdomen pelvis w con* [id number] IMPRESSION: 1. Moderate hepatomegaly and hepatic steatosis. 2. No bile duct dilatation. 3. No CT evidence for acute pancreatitis. 4. Mildly hydropic gallbladder with no adjacent inflammation. 5. Prior gastric sleeve and appendectomy. 6. No free air or free fluid.
[2022-08-03] MEDS: iohexol 350 mg/mL 500 mL Btl (per mL) IV (12:43)
[2022-08-03 13:16] LABS: Hepatitis A Antibody IgM Non-Reactive (Nonreactive); Hepatitis B Core AB, Total Non-Reactive (Nonreactive); Hepatitis B Surface AB 6.7 (11.5-1000); Hepatitis B Surface Antigen Non-Reactive (Nonreactive); Hepatitis C Virus Antibody Non-Reactive (Nonreactive)
[2022-08-03] MEDS: LORazepam 2 mg Tablet PO (14:18)
[2022-08-03] MEDS: insulin lispro 100 unit/1 mL SUBCUT (15:40)
[2022-08-03] MEDS: HYDROmorphone 1 mg/mL INJ 1 mL 0.5 MG IVP (16:43)
[2022-08-03 19:41] LABS: Glucose Point of Care 328 mg/dL (70-110)
[2022-08-03 19:41] LABS: Glucose Point of Care 368 mg/dL (70-110)
--- NOTE | 2022-08-04 07:56 | DCPLANNER ---
Addendum entered by Shamika Guerrero 09/25/22 10:36: Patient had a follow up appointment scheduled with general surgery - patient did not attend appointment. Addendum entered by Shamika Guerrero 09/09/22 13:25: Patient has a follow up appointment scheduled for Sunday, September 18, [address]22 at 3:[address] Lowery at general surgery. Original Note: residential field manager had message to schedule a follow up appointment for patient with general surgery. residential field manager sent patients information to the front office staff at general surgery. Patients information will be printed and reviewed. Clinic will call patient with appointment information.
--- NOTE | 2022-08-04 11:45 | DCPLANNER ---
Addendum entered by Shamika Guerrero 08/28/22 10:15: Patient had a follow up appointment scheduled with Dr. Allen - patient did attend appointment. Addendum entered by Shamika Guerrero 08/05/22 11:41: Patient returned field nurse case manager phone call - wanted help in getting established with a primary care physician. contract associate manager called [facility], gave clinic patients information. A follow up appointment was scheduled for Friday, August 18 at 8:[address] Allen - patient is aware of appointment. Original Note: contract associate manager called patient due to no primary care physician - no answer at this time, a voicemail was left for patient to return field nurse case manager phone call.
== END 2022-08-03 17:09 | disposition home or self-care (01) ==
PROVIDERS: Emergency Provider Physician Assistant
DX: E11.65 Type 2 diabetes mellitus with hyperglycemia (principal); F41.9 Anxiety disorder, unspecified; B37.9 Candidiasis, unspecified; K80.50 Calculus of bile duct without cholangitis or cholecystitis without obstruction; Z79.84 Long term (current) use of oral hypoglycemic drugs
CPT/HCPCS: 36416; 74177; 76705; 80053; 81001; 82009; 82962; 83690; 85025; 86705; 86706; 86709; 86803; 87077; 87086; 87186; 87340; 96361; 96372; 96374; 96375; 96376; 99285; J1170; J1815; J2060; J2270; J2405; J7030; Q9967

== ENCOUNTER → 2022-08-18 09:38 | Outpatient (BNVA) | payer MEDICAID, SELFPAY | PROVIDERS: PCP Family Medicine; Visit Provider Family Medicine | DX: E11.9 Type 2 diabetes mellitus without complications (principal); F32.A Depression, unspecified; K80.50 Calculus of bile duct without cholangitis or cholecystitis without obstruction; F41.9 Anxiety disorder, unspecified; F10.20 Alcohol dependence, uncomplicated; K76.0 Fatty (change of) liver, not elsewhere classified | CPT/HCPCS: 80053; 80061; 81000; 83036; 83690; 84439; 84443; 85025 ==